=== PATIENT | female | born 1970 | race Caucasian/White ===

== ENCOUNTER → 2016-11-12 | Outpatient (CLI) | payer BC | LOC: FIMAGING 09:26 | PROVIDERS: ATTEND Obstetrics & Gynecology | DX: Z12.31 Encounter for screening mammogram for malignant neoplasm of breast (principal) | CPT/HCPCS: G0202 ==

== ENCOUNTER → 2018-01-13 | Outpatient (CLI) | payer BC | LOC: FIMAGING 08:49 | PROVIDERS: ATTEND Obstetrics & Gynecology | DX: Z12.31 Encounter for screening mammogram for malignant neoplasm of breast (principal); Z85.3 Personal history of malignant neoplasm of breast ==

== ENCOUNTER → 2018-01-25 | Outpatient (CLI) | payer BC | LOC: FIMAGING 10:53 | PROVIDERS: ATTEND Obstetrics & Gynecology | DX: N63.21 Unspecified lump in the left breast, upper outer quadrant (principal) ==

== ENCOUNTER → 2018-07-29 | Outpatient (CLI) | payer OTHER | LOC: FIMAGING 08:49 | PROVIDERS: ATTEND Obstetrics & Gynecology | DX: N63.20 Unspecified lump in the left breast, unspecified quadrant (principal) ==